=== PATIENT | female | born 1955 | race Caucasian/White ===

== ENCOUNTER → 2019-09-22 | Outpatient (REF) | payer OTHER | LOC: M SFHCADAM 14:14 | PROVIDERS: ATTEND Physician Assistant Medical | DX: Z12.4 Encounter for screening for malignant neoplasm of cervix (principal) ==

== ENCOUNTER → 2019-09-22 | Outpatient (CLI) | payer OTHER ==
--- NOTE | 2019-09-22 16:44 | REPMRS ---
Patient History The patient states she had a clinical breast exam in Patient is postmenopausal. No known family history of cancer. No Hormone Replacement Therapy Digital Woman Screen Mammo: September 22, 2019 - Exam #: [id number] Bilateral CC and MLO view(s) were taken. Technologist: Lenore Mckay, Technologist No prior studies available for comparison. FINDINGS: The breast tissue is heterogeneously dense. This may lower the sensitivity of mammography. There is a 12 mm nodule in the right breast central retroareolar region anterior third which merits further evaluation. This is well circumscribed and may be a cyst. There is also a 12 mm asymmetric density in the posterior third of the left breast laterally. This merits further evaluation as well. There is no other evidence of dominant mass, architectural distortion, or grouped microcalcification typical of malignancy. 3-D tomosynthesis shows no additional findings. Assessment: BI-RADS/ACR category 0 mammogram, Incomplete: Need additional imaging evaluation and/or prior mammograms for comparison. Recommendation Ultrasound and special view mammogram of both breasts. This patient's Lifetime Breast Cancer RIsk is estimated at 5.9 %. This mammogram was interpreted with the aid of an FDA-approved computer-aided dectection system. Electronically Signed By: Noel Finley MD 09/22/19 [id number]
== END ==
LOC: M WHC 11:40
PROVIDERS: ATTEND Physician Assistant Medical
DX: Z12.31 Encounter for screening mammogram for malignant neoplasm of breast (principal); N63.41 Unspecified lump in right breast, subareolar; N63.20 Unspecified lump in the left breast, unspecified quadrant

== ENCOUNTER → 2019-10-06 | Outpatient (CLI) | payer OTHER ==
--- NOTE | 2019-10-06 17:24 | REP ---
Digital diagnostic bilateral mammography with CAD, and bilateral focused breast sonography: History: Screening mammography 09/22/2019 was BIRADS category zero because of a subareolar nodule on the right and a upper outer quadrant nodule on the left. Diagnostic imaging was recommended. Mammographic findings: Magnified focal spot compression views were obtained bilaterally. These confirm the nodular opacities. A well circumscribed relatively low density in the subareolar nodule is seen on the right measuring 12 mm. On the left images confirm an asymmetric opacity somewhat posteriorly and laterally. This is less than optimally seen on the craniocaudal projection spot films but felt to be present. This measures 11 mm in diameter as well. Breast parenchyma is heterogeneously dense as before. Sonographic findings: Scanning in the retroareolar region of the right breast demonstrates an anechoic simple cyst at approximate 12 o'clock posterior the nipple measuring 9 x 9 x 8 mm. There is also a 5 mm cyst in the retroareolar region. No sonographically suspicious finding is seen on the right. On the left, scanning is performed throughout the left lateral breast. Heterogeneous fibroglandular echotexture is seen. No suspicious sonographic abnormality is observed. Impression: 1. BIRADS category II benign findings right breast, subareolar cyst. No suspicious right breast abnormality. 2. BIRADS category four suspicious findings left breast with an irregularly marginated upper outer quadrant asymmetric density present mammographically. No sonographic correlate. Recommend stereotactic needle biopsy procedure. BIRADS 2: BI-RADS/ACR category 2 mammogram. Benign Findings. This mammogram was interpreted with the aid of an FDA-approved computer-aided detection system. The patient letter being requested is m4 . Electronically Signed by Cuauhtemoc Finley MD 10/06/2019 06:40 P
== END ==
LOC: M RAD 12:35
PROVIDERS: ATTEND Physician Assistant Medical
DX: N63.0 Unspecified lump in unspecified breast (principal)

== ENCOUNTER → 2019-11-01 | Outpatient (CLI) | payer OTHER ==
[~2019-11-01] MED LIST: LIDOCAINE 1% MDV 20ML VIAL As Ordered ONE; SODIUM BICARBONATE 8.4% INJ 50MEQ 50 ML VIAL As Ordered ONE
[2019-11-01 10:05] VITALS: BP 132/89
--- NOTE | 2019-11-01 10:21 | REP ---
Digital diagnostic unilateral left breast mammography: Two views. With CAD. History: Marker clip placement views. The patient is status post sterotactic needle biopsy procedure for a nodular opacity in the left lateral breast. Comparison mammography September 22, 2019. Findings: The marker clip is seen in good position at the site of the target nodule in the inferolateral aspect of the left breast. There is no evidence of a hematoma. Impression: Marker clip in good position. This mammogram was interpreted with the aid of an FDA-approved computer-aided detection system. Electronically Signed by Cuauhtemoc Finley MD 11/01/2019 10:54 A
--- NOTE | 2019-11-01 11:03 | REP ---
Stereotactic breast biopsy. This procedure is performed by SHAHZAD Verde, under the personal supervision of Dr. Finley. The risks and benefits of the procedure were explained to the patient and informed consent was obtained both verbally and written. Directly prior to the start of the procedure, a formal timeout was done in the procedure room. The lateral medial approach was utilized. The left breast density was localized using stereotactic mammographic guidance. 5 ml of buffered lidocaine was used as a local anesthetic. And 10-gauge, suction assisted Mammotome needle was inserted and 6 core biopsy samples were obtained. A marker clip was placed at the biopsy site. The needle was removed and homeostasis was achieved. The patient tolerated the procedure well and there were no immediate complications. After the appropriate amount of monitored convalescence, the patient was discharged from the department. Impression: Technically successful left breast stereotactic biopsy Reviewed by SHAHZAD Dee 11/01/2019 10:17 A Electronically Signed by Cuauhtemoc Finley MD 11/01/2019 10:55 A
== END ==
LOC: M IRPRO 08:33
PROVIDERS: ATTEND Surgery
DX: N60.22 Fibroadenosis of left breast (principal); Z91.048 Other nonmedicinal substance allergy status

== ENCOUNTER → 2019-11-23 | Outpatient (REF) | payer MEDICAID, OTHER ==
[~2019-11-23] MED LIST changes: +ASPI-264 PO; +IBUP-1022 PO; -LIDOCAINE 1% MDV 20ML VIAL As Ordered ONE; +MIDOTAB PO; +NON-325T5 PO; +OXYC1TAB23 PO; +PEPT262C2 PO; +PRIL20TA2 PO; -SODIUM BICARBONATE 8.4% INJ 50MEQ 50 ML VIAL As Ordered ONE
== END ==
LOC: M SFHCWAGY 10:44
PROVIDERS: ATTEND Specialist
DX: R87.613 High grade squamous intraepithelial lesion on cytologic smear of cervix (HGSIL) (principal)

== ENCOUNTER → 2019-12-14 | Outpatient (REF) | payer MEDICAID, OTHER | LOC: M LAB REF 17:20 | PROVIDERS: ATTEND Specialist | DX: D06.0 Carcinoma in situ of endocervix (principal) ==

== ENCOUNTER 2020-01-01 07:38 | Day surgery (SDC) | payer OTHER ==
[~2020-01-01] VITALS: Ht 165.1 cm; Wt 79.8 kg
[~2020-01-01 07:38] MED LIST changes: -IBUP-1022 PO; +LIDOCAINE 1% MDV 20ML VIAL SQ PRN; +LIDOCAINE 2% 100MG/5ML SDV (FOR ANES.) As Ordered ONE; +LR 1,000 ML IV ONE; +MIDAZOLAM INJ 2MG/2ML VIAL (J2250 PER 1MG) As Ordered ONE; -MIDOTAB PO; +ONDANSETRON 4MG/2ML VIAL As Ordered ONE; -OXYC1TAB23 PO; +ROCURONIUM BROMIDE 50 MG/5 ML VIAL As Ordered ONE; +SUCCINYLCHOLINE 100 MG/5 ML SYRINGE (J0330) As Ordered ONE; +SUGAMMADEX SODIUM 500 MG/5 ML VIAL (BRIDION) As Ordered ONE; +ceFAZolin SOD 2 GM in IV 1 EA IV ONE; +dexameTHASONE 4 MG/ML 1ML VIAL (J1100 PER 1MG) As Ordered ONE; +fentaNYL 250 MCG/5 ML INJECTION (J3010) As Ordered ONE; +propofoL 200 MG/20 ML VIAL As Ordered ONE
[2020-01-01] MEDS ORDERED: ePHEDrine SULFATE 25 MG/5 ML(5MG/ML) SYRINGE As Ordered ONE (07:44)
[2020-01-01] MEDS ORDERED: PHENYLephrine HCL 500 MCG/5 ML (100MCG/ML) SYRINGE (J2370) As Ordered ONE (07:44)
[2020-01-01] MEDS ORDERED: MIDOTAB PO (08:02)
[2020-01-01 08:15] LABS: HEMATOCRIT 44.7 % (36.0-47.0); HEMOGLOBIN 14.2 g/dl (12.0-15.5); MEAN CORPUSCULAR HEMOGLOBIN 26.8 pg (27.0-33.0); MEAN CORPUSCULAR HGB CONC 31.8 g/dl (32.0-36.5); MEAN CORPUSCULAR VOLUME 84.5 fl (80.0-96.0); PLATELET COUNT, AUTOMATED 287 10^3/uL (150-450); RED BLOOD COUNT 5.29 10^6/uL (4.00-5.40); WHITE BLOOD COUNT 5.6 10^3/uL (4.0-10.0)
[2020-01-01] MEDS ORDERED: BUPIVACAINE HCL 0.25% 10ML VIAL As Ordered ONE (09:11)
[2020-01-01] MEDS ORDERED: SUCCINYLCHOLINE 100 MG/5 ML SYRINGE (J0330) As Ordered ONE (09:30)
[2020-01-01] MEDS ORDERED: ACETAMINOPHEN 1000MG 100ML IV BTL (OFIRMEV) (J0131 PER 10MG) As Ordered ONE (09:48)
[2020-01-01] MEDS ORDERED: LIDOCAINE 2% 100MG/5ML SDV (FOR ANES.) As Ordered ONE (10:55)
--- NOTE | 2020-01-01 11:19 | RO ---
DATE OF PROCEDURE: 01/01/2020 PREPROCEDURE DIAGNOSIS: Carcinoma in situ of the cervix. POSTPROCEDURE DIAGNOSIS: Carcinoma in situ of the cervix. PROCEDURE: Robotic assisted laparoscopic hysterectomy, bilateral salpingo-oophorectomy. SURGEON: Jose Low MD PREASSEMBLER PRINTED CIRCUIT BOARD: Lynda Iverson NP ANESTHESIA: General endotracheal. ESTIMATED BLOOD LOSS: 100 mL. URINE OUTPUT: 100 mL. FINDINGS: Cervix with evidence of prior conization. Irregular mildly enlarged uterus with multiple uterine fibroids. Normal fallopian tubes and ovaries. Normal upper abdomen. OPERATIVE SUMMARY: The patient taken to the operating room where general endotracheal anesthesia was induced. She was prepped and draped in sterile fashion in the dorsal lithotomy position. A Abxter catheter was placed. A [employer] uterine manipulator was placed. A periumbilical incision was made with a scalpel. Veress needle was placed through this incision. Intra-abdominal location of the Veress needle was assessed with the use of a saline filled syringe. A pneumoperitoneum was created. The Veress needle was removed. An 8 mm trocar using [employer] was inserted through this incision. Three 8 mm suprapubic ports were placed under direct visualization. The patient was placed in Trendelenburg position. The da Isaak surgical robot was docked to the ports. Using a vessel sealer and a fenestrated bipolar instrument, the IP ligaments, round ligaments and broad ligaments were coagulated and incised. The anterior and posterior leaves of the broad ligament were . The uterine vessels were coagulated and incised. Using the monopolar endoshears, the bladder flap was created. Curvilinear incision was made in the upper vagina at the level of the VCare cup and this was extended circumferentially around the upper vagina. The specimen including the uterus, cervix, both fallopian tubes and ovaries was removed through the vagina. The vaginal cuff was closed with #1 V-Loc suture in a running fashion. The pelvis was irrigated with good hemostasis noted. All instruments were removed. A cystoscopy was performed using a 70 degrees cystoscope. The Baxter catheter was removed. Bilateral ureteral jets were identified and there was no evidence of injury to the bladder. All instruments were removed. The skin was closed with #4-0 Monocryl subcuticular sutures. Sponge, instrument and needle counts were correct. The patient was extubated and went to recovery.
[2020-01-01] MEDS ORDERED: fentaNYL 100 MCG/2 ML INJECTION (J3010) IV PRN (11:30)
[2020-01-01] MEDS ORDERED: MORPHINE 4 MG/ML 1ML VIAL/SYRINGE (J2270) IV PRN (11:30)
[2020-01-01] MEDS ORDERED: PERCOCET 5MG/325MG TAB PO PRN ×2 (11:30)
[2020-01-01] MEDS ORDERED: oxyCODONE 5MG TAB PO PRN (11:30)
[2020-01-01] MEDS ORDERED: ONDANSETRON 4MG/2ML VIAL IV PRN ×2 (11:30)
[2020-01-01] MEDS ORDERED: LR 1,000 ML IV SCH ×2 (11:30)
[2020-01-01] MEDS ORDERED: METOCLOPRAMIDE INJ 10MG/2ML VIAL (J2765 PER 1) As Ordered ONE (11:43)
[2020-01-01] MEDS: KETOROLAC 30 MG/ML 1ML VIAL IV PRN (11:47)
[2020-01-01] MEDS: HYDROMORPHONE HCL 0.5 MG/ 0.5 ML SYRINGE (J1170 PER 1) IV PRN ×2 (11:54→12:10)
[2020-01-01] MEDS ORDERED: METOCLOPRAMIDE INJ 10MG/2ML VIAL (J2765 PER 1) IV PRN (12:00)
[2020-01-01] MEDS ORDERED: OXYC1TAB23 PO (12:04)
[2020-01-01] MEDS ORDERED: diphenhydrAMINE 50MG/ML VIAL (J1200) As Ordered ONE (12:32)
[2020-01-01] MEDS ORDERED: SCOPOLAMINE 1MG TRANSDERMAL PATCH As Ordered ONE (12:32)
[2020-01-01] MEDS ORDERED: diphenhydrAMINE 50MG/ML VIAL (J1200) IV PRN (12:45)
[2020-01-01] MEDS ORDERED: SCOPOLAMINE 1MG TRANSDERMAL PATCH TOP ONE (12:45)
[2020-01-01 12:51] VITALS: BP 114/74
[2020-01-01] MEDS: DOCUSATE SODIUM 100 MG CAP PO SCH ×2 (13:06→20:56)
[2020-01-01 13:21] VITALS: BP 116/74
[2020-01-01 13:51] VITALS: BP 113/75
[2020-01-01 14:51] VITALS: BP 112/75
[2020-01-01 15:51] VITALS: BP 116/70
[2020-01-01] MEDS: ACETAMINOPHEN 500 MG TAB PO PRN (19:27)
[2020-01-01 22:00] VITALS: BP 129/83
[2020-01-02 02:00] VITALS: BP 111/65
[2020-01-02] MEDS: KETOROLAC 30 MG/ML 1ML VIAL IV PRN (04:11)
[2020-01-02 06:00] VITALS: BP 111/66
[2020-01-02] MEDS: DOCUSATE SODIUM 100 MG CAP PO SCH (07:49)
[2020-01-02] MEDS ORDERED: IBUP-1022 PO (12:44)
[2020-01-02] MEDS: ACETAMINOPHEN 500 MG TAB PO PRN (13:38)
== END 2020-01-02 14:02 | disposition home or self-care (01) ==
LOC: M SDC 07:38 → M MSPAV 12:35 → M SDC 01-02 14:02
PROVIDERS: ATTEND Specialist
DX: N87.1 Moderate cervical dysplasia (principal); N84.0 Polyp of corpus uteri; D26.1 Other benign neoplasm of corpus uteri; N83.311 Acquired atrophy of right ovary; N83.312 Acquired atrophy of left ovary; K21.9 Gastro-esophageal reflux disease without esophagitis; K44.9 Diaphragmatic hernia without obstruction or gangrene; Z79.899 Other long term (current) drug therapy; Z79.82 Long term (current) use of aspirin; Z91.048 Other nonmedicinal substance allergy status

== ENCOUNTER → 2020-05-09 | Outpatient (CLI) | payer MEDICAID ==
[~2020-05-09] MED LIST changes: +IBUP-1022 PO; -LIDOCAINE 1% MDV 20ML VIAL SQ PRN; -LIDOCAINE 2% 100MG/5ML SDV (FOR ANES.) As Ordered ONE; -LR 1,000 ML IV ONE; -MIDAZOLAM INJ 2MG/2ML VIAL (J2250 PER 1MG) As Ordered ONE; +MIDOTAB PO; -ONDANSETRON 4MG/2ML VIAL As Ordered ONE; +OXYC1TAB23 PO; -ROCURONIUM BROMIDE 50 MG/5 ML VIAL As Ordered ONE; -SUCCINYLCHOLINE 100 MG/5 ML SYRINGE (J0330) As Ordered ONE; -SUGAMMADEX SODIUM 500 MG/5 ML VIAL (BRIDION) As Ordered ONE; -ceFAZolin SOD 2 GM in IV 1 EA IV ONE; -dexameTHASONE 4 MG/ML 1ML VIAL (J1100 PER 1MG) As Ordered ONE; -fentaNYL 250 MCG/5 ML INJECTION (J3010) As Ordered ONE; -propofoL 200 MG/20 ML VIAL As Ordered ONE
--- NOTE | 2020-05-09 15:04 | REPMRS ---
Patient History The patient states she had a clinical breast exam 6 months ago.No known family history of cancer. Benign stereotatic loc for ea lesion of the left breast, November 01, 2019. No Hormone Replacement Therapy Diagnostic Unilateral Mammo: Left Breast - May 09, 2020 - Exam #: [id number] CC and MLO view(s) were taken of the left breast. Technologist: Windy Leong, Technologist Prior study comparison: October 06, 2019, digital mammo diagnostic bilateral, performed at [facility]. September 22, 2019, bilateral digital woman screen mammo performed at [facility]. FINDINGS: There are scattered fibroglandular densities. There is a needle biopsy marker clip at the site of the biopsied nodule in the left breast. The nodule is smaller than on the pre-biopsy examination.There has been no other change in the appearance of the left breast parenchyma in the interval since the prior examination. No mass, architectural distortion, or microcalcific grouping has developed. No suspicious finding. 3-D tomosynthesis shows no additional findings. Assessment: BI-RADS/ACR category 2 mammogram. Benign Findings. Recommendation Routine screening mammogram of both breasts in 6 months. This patient's Lifetime Breast Cancer RIsk is estimated at 5.9 %. This mammogram was interpreted with the aid of an FDA-approved computer-aided dectection system. Electronically Signed By: Noel Finley MD 05/09/20 [id number]
== END ==
LOC: M WHC 14:24
PROVIDERS: ATTEND Surgery
DX: N63.20 Unspecified lump in the left breast, unspecified quadrant (principal)
CPT/HCPCS: 77065; G0279

== ENCOUNTER → 2020-05-21 | Outpatient (CLI) | payer MEDICAID ==
--- NOTE | 2020-06-11 13:43 | REP ---
LEFT BREAST ULTRASOUND HISTORY: Left nipple discharge for one week. Attention 2 o'clock and 4 o'clock regions. TECHNIQUE: Real-time sonographic evaluation of the left retroareolar region performed. FINDINGS: No discrete cystic or solid nodule is seen. There are two mildly dilated ducts identified with no abnormal internal echogenicity both measuring about 2 mm in diameter. IMPRESSION: ACR 2 benign ultrasound left breast. No cystic or solid nodule seen in the left retroareolar region with particular attention paid to 2 o'clock and 4 o'clock positions, in this patient with history of left nipple discharge for one week. Two normal appearing ducts are seen in the retroareolar region. Clinical correlation and follow-up recommended. YOHANNESD
== END ==
LOC: M WHC 06:44
PROVIDERS: ATTEND Surgery
DX: N64.52 Nipple discharge (principal)

== ENCOUNTER → 2020-08-20 | Outpatient (CLI) | payer MEDICARE, MEDICAID ==
[~2020-08-20] MED LIST changes: +ACET-838 PO; -NON-325T5 PO; +PROHANCE 279.3MG/ML 15ML VIAL As Ordered ONE
--- NOTE | 2020-08-20 17:05 | REP ---
INDICATION: DISCHARGE FROM LEFT NIPPLE. COMPARISON: Comparison left breast mammography May 09, 2020. Comparison left breast sonography May 21, 2020. Comparison is also made with mammography from 06 October 2019. TECHNIQUE: Three Denia MRI imaging was performed with a dedicated breast coil. Axial, coronal, and sagittal T1 and T2 weighted scans were obtained with and without fat saturation in the usual fashion. The study includes dynamically acquired post gadolinium-enhanced imaging with image subtraction. Maximum intensity projection and multi planar reformation imaging is included as well. This study is interpreted with the aid of MyCabbage, an FDA approved computer aided detection (CAD) software program, on a dedicated breast MRI workstation. The gadolinium enhancement dose is 15 mL of intravenous ProHance. FINDINGS: A previously placed HydroMARK needle biopsy clip devices noted inferiorly and laterally in left breast. There is a T1 hyperintense proteinaceous cyst in the retroareolar region of the right breast measuring 10 mm. This corresponds with sonographic findings from October 06, 2019. There is no evidence of axillary lymphadenopathy. There is an 8 mm T2 hyperintense area of nodular enhancement in the right breast at approximately 11-12 o'clock middle 3rd consistent with fibroadenoma. There is a slightly dilated retroareolar duct in each breast on T2 weighted scans. There is a small 5 mm cyst in the right breast medially. There is a 5 mm area of enhancement and washout in the subareolar region of the left breast inferior and lateral quadrant at approximately 4 o'clock position anterior 3rd. This is adjacent to the dilated retroareolar duct. This is not apparent on T2 weighted scans. IMPRESSION: Mildly dilated retroareolar breast ducts, 1 on each side. Benign-appearing fibroadenoma in the right breast 8 mm. 4 mm focus of enhancement and washout in the retroareolar region of the left breast inferiorly and laterally associated with the dilated duct. Lesion such is intraductal papilloma could have this appearance. Recent subareolar left breast sonography did not show an abnormal soft tissue structure. BI-RADS category is felt to be best assigned as category 4 suspicious abnormality. Second-look targeted retroareolar ultrasound could be considered. Alternatively, MRI guided needle biopsy could be considered, although the target is quite small.. <Electronically signed by Noel Finley > 08/20/20 [id number]
== END ==
LOC: M RAD 15:00
PROVIDERS: ATTEND Surgery
DX: N64.52 Nipple discharge (principal); Z97.8 Presence of other specified devices; N60.01 Solitary cyst of right breast; N60.41 Mammary duct ectasia of right breast; N60.42 Mammary duct ectasia of left breast
CPT/HCPCS: A9576; C8908

== ENCOUNTER → 2020-08-30 | Outpatient (CLI) | payer MEDICARE, MEDICAID ==
[~2020-08-30] MED LIST changes: -PROHANCE 279.3MG/ML 15ML VIAL As Ordered ONE
--- NOTE | 2020-08-30 11:48 | REP ---
INDICATION: 2ND LOOK LT BREAST - ABNORMAL MRI. Targeted sonography. Recent MRI study demonstrated dilated ducts and a 4 mm enhancing nodule in the subareolar region of the left breast inferiorly and laterally. COMPARISON: Comparison MRI study August 20, 2020. Comparison mammography May 09, 2020.. TECHNIQUE: Targeted left breast sonography. FINDINGS: Left breast is scanned inferiorly and laterally, 3 o'clock 6 o'clock. There are 2 dilated ducts in the subareolar region just behind the nipple. At 6 o'clock a dilated duct is seen with hypoechoic content. In the 3 to 4 o'clock position in the left breast there is a echogenic nodule which appears to be within a breast duct, 7 x 7 x 3 mm in diameter. This is 3.3 cm from the nipple and is felt to correspond with the focus on breast MRI study. No other significant sonographic finding. The previously placed HydroMARK clip is again noted at the 4 o'clock position. This is not related to the MR findings. IMPRESSION: Second-look sonography demonstrates a 7 mm oval-shaped echogenic nodule which appears to be within a duct at approximately the 3 to 4 o'clock position in the left breast. This is felt to correspond to the MRI findings. Ultrasound-guided needle biopsy suggested. BI-RADS category 4 suspicious finding. Marker clip placement and post clip placement mammography suggested. Please note that the ultrasound finding is fairly subtle and it may be prudent to schedule the ultrasound-guided needle biopsy here in the Main [place] department, hopefully with the same timber robber. <Electronically signed by Noel Finley > 08/30/20 [id number]
== END ==
LOC: M RAD 10:25
PROVIDERS: ATTEND Surgery
DX: R92.2 Inconclusive mammogram (principal)

== ENCOUNTER → 2020-09-18 | Outpatient (CLI) | payer MEDICAID, MEDICARE | LOC: M WHCPRO 10:46 | PROVIDERS: ATTEND Surgery | DX: R92.8 Other abnormal and inconclusive findings on diagnostic imaging of breast (principal); Z53.8 Procedure and treatment not carried out for other reasons ==

== ENCOUNTER → 2020-09-23 | Outpatient (CLI) | payer MEDICARE ==
[~2020-09-23] MED LIST changes: +ACET1TAB55 PO; +PROT1TAB2 PO
--- NOTE | 2020-09-23 13:22 | REP ---
INDICATION: LEFT BREAST MASS/LEFT BREAST BX/CK CLIP PLACEMENT. COMPARISON: Mammogram 05/09/2020. ultrasound 08/30/2020. TECHNIQUE: MLO and CC views left breast performed following ultrasound-guided biopsy of a nodule at 3-4 o'clock left breast. FINDINGS: A biopsy clip is seen at the site of the biopsy at 3 o'clock left breast. Remainder of the mammogram is unchanged. IMPRESSION: Biopsy clip placed at 3 o'clock left breast, at the site of today's ultrasound-guided biopsy. RECOMMENDATION: Clinical follow-up. <Electronically signed by Khoa Feliciano > 09/23/20 [id number]
== END ==
LOC: M WHC 11:05
PROVIDERS: ATTEND Surgery
DX: R92.8 Other abnormal and inconclusive findings on diagnostic imaging of breast (principal)

== ENCOUNTER → 2020-09-23 | Outpatient (CLI) | payer MEDICAID, MEDICARE ==
[~2020-09-23] MED LIST changes: +LIDOCAINE 1% MDV 20ML VIAL As Ordered ONE; +SODIUM BICARBONATE 8.4% INJ 50MEQ 50 ML VIAL As Ordered ONE
[2020-09-23 10:40] VITALS: BP 130/80
--- NOTE | 2020-09-24 18:40 | REP ---
INDICATION: LT BREAST MASS. COMPARISON: None. TECHNIQUE: The procedure was performed under the direct supervision of Dr. Feliciano. The risks and benefits of the procedure were explained to the patient and informed consent was obtained. The patient has a history of a 7 mm oval-shaped echogenic nodule which appears to be within a duct at approximately the 3 to 4 o'clock position of the left breast seen on a previous ultrasound dated 08/30/2020. The left breast nodule was localized using ultrasound guidance. The skin was prepped and draped in a sterile fashion. 1% Xylocaine was used as a local anesthetic. Using ultrasound guidance a 14 gauge coaxial needle biopsy system was inserted and6 core biopsy samples were obtained. A marker clip was placed at the biopsy site The patient tolerated the procedure well and there were no immediate complications. After the appropriate amount of monitored convalescence, the patient was discharged from the department. FINDINGS: None IMPRESSION: Ultrasound-guided left breast biopsy with marker clip placement. <Electronically signed by Marcos Hunt > 09/24/20 1540 <Electronically signed by Khoa Feliciano > 09/24/20 [id number]
== END ==
LOC: M IRPRO 09:32
PROVIDERS: ATTEND Surgery
DX: N60.12 Diffuse cystic mastopathy of left breast (principal)

== ENCOUNTER → 2020-10-30 | Outpatient (CLI) | payer MEDICARE, MEDICAID ==
[~2020-10-30] MED LIST changes: -LIDOCAINE 1% MDV 20ML VIAL As Ordered ONE; -SODIUM BICARBONATE 8.4% INJ 50MEQ 50 ML VIAL As Ordered ONE
--- NOTE | 2020-10-30 14:22 | REP ---
INDICATION: PREOP EXAM. COMPARISON: No comparison study. TECHNIQUE: Two views.. FINDINGS: The lungs are well inflated and free of infiltrate. The pleural angles are sharp. The heart size is normal. Pulmonary vasculature is not increased. No significant bony abnormality is seen. There is minimal linear fibrosis in the left base laterally. IMPRESSION: No active disease.. <Electronically signed by Noel Finley > 10/30/20 [id number]
== END ==
LOC: M ADAMS 13:49
PROVIDERS: ATTEND Family Medicine
DX: Z01.818 Encounter for other preprocedural examination (principal); N64.52 Nipple discharge

== ENCOUNTER → 2020-10-30 | Outpatient (REF) | payer MEDICARE, MEDICAID ==
[2020-10-30 16:20] LABS: BASO % 0.5 % (0.0-1.0); EOS # 0.2 10^3/uL (0.0-0.5); HEMATOCRIT 42.7 % (36.0-47.0); HEMOGLOBIN 13.3 g/dl (12.0-15.5); LYMPH # 1.4 10^3/uL (1.5-5.0); LYMPH % 23.8 % (24.0-44.0); MEAN CORPUSCULAR HEMOGLOBIN 25.9 pg (27.0-33.0); MEAN CORPUSCULAR HGB CONC 31.1 g/dl (32.0-36.5); MEAN CORPUSCULAR VOLUME 83.1 fl (80.0-96.0); MONO # 0.5 10^3/uL (0.0-0.8); MONO % 7.6 % (2.0-8.0); NEUTROPHILS # 3.8 10^3/uL (1.5-8.5); NEUTROPHILS % 63.6 % (36.0-66.0); PLATELET COUNT, AUTOMATED 305 10^3/uL (150-450); RED BLOOD COUNT 5.14 10^6/uL (4.00-5.40)
[2020-10-30 16:55] LABS: ALBUMIN 3.7 GM/DL (3.2-5.2); ALT/SGPT 29 U/L (12-78); BILIRUBIN,TOTAL 0.3 MG/DL (0.2-1.0); BLOOD UREA NITROGEN 19 MG/DL (7-18); CALCIUM LEVEL 9.2 MG/DL (8.8-10.2); CARBON DIOXIDE LEVEL 29 MEQ/L (21-32); CHLORIDE LEVEL 107 MEQ/L (98-107); CREATININE FOR GFR 0.56 MG/DL (0.55-1.30); GLOMERULAR FILTRATION RATE > 60.0 (>45); GLUCOSE, FASTING 76 MG/DL (70-100); POTASSIUM SERUM 4.8 MEQ/L (3.5-5.1); SODIUM LEVEL 141 MEQ/L (136-145); TOTAL PROTEIN 7.1 GM/DL (6.4-8.2)
== END ==
LOC: M SFHCADAM 13:48
PROVIDERS: ATTEND Family Medicine
DX: Z01.818 Encounter for other preprocedural examination (principal); N64.52 Nipple discharge

== ENCOUNTER → 2020-11-07 | Outpatient (CLI) | payer MEDICARE | LOC: M LABSMTC 10:20 | PROVIDERS: ATTEND Anesthesiology | DX: Z01.812 Encounter for preprocedural laboratory examination (principal); Z20.822 Contact with and (suspected) exposure to COVID-19 ==

== ENCOUNTER 2020-11-12 06:22 | Day surgery (SDC) | payer MEDICARE ==
[~2020-11-12] VITALS: Ht 167.6 cm; Wt 81.2 kg
[2020-11-12] MEDS ORDERED: ceFAZolin SOD 2 GM in IV 1 EA IV ONE (07:00)
[2020-11-12] MEDS ORDERED: NS 1,000 ML IV ONE (07:00)
[2020-11-12] MEDS ORDERED: HEPARIN SOD (PORCINE) 5000UNITS/ML 1ML VIAL/SYRINGE SQ ONE (07:00)
[2020-11-12] MEDS ORDERED: LR 1,000 ML IV ONE (07:00)
[2020-11-12] MEDS ORDERED: LIDOCAINE 1% MDV 20ML VIAL As Ordered ONE (07:14)
[2020-11-12] MEDS ORDERED: SCOPOLAMINE 1MG TRANSDERMAL PATCH As Ordered ONE (07:14)
[2020-11-12] MEDS ORDERED: BUPIVACAINE HCL 0.25% 10ML VIAL As Ordered ONE (07:14)
[2020-11-12] MEDS ORDERED: LIDOCAINE 2% 100MG/5ML SDV (FOR ANES.) As Ordered ONE (07:20)
[2020-11-12] MEDS ORDERED: propofoL 200 MG/20 ML VIAL As Ordered ONE (07:20)
[2020-11-12] MEDS ORDERED: fentaNYL 250 MCG/5 ML INJECTION (J3010) As Ordered ONE (07:20)
[2020-11-12] MEDS ORDERED: MIDAZOLAM INJ 2MG/2ML VIAL (J2250 PER 1MG) As Ordered ONE (07:20)
[2020-11-12] MEDS ORDERED: ROCURONIUM BROMIDE 50 MG/5 ML VIAL As Ordered ONE (07:20)
[2020-11-12] MEDS ORDERED: SCOPOLAMINE 1MG TRANSDERMAL PATCH TOP ONE (08:00)
[2020-11-12] MEDS ORDERED: METOCLOPRAMIDE INJ 10MG/2ML VIAL (J2765 PER 1) As Ordered ONE (08:07)
[2020-11-12] MEDS ORDERED: KETOROLAC 60MG 2ML VIAL As Ordered ONE (08:07)
[2020-11-12] MEDS ORDERED: ONDANSETRON 4MG/2ML VIAL As Ordered ONE ×2 (08:07→09:55)
[2020-11-12] MEDS ORDERED: dexameTHASONE 4 MG/ML 1ML VIAL (J1100 PER 1MG) As Ordered ONE (08:07)
[2020-11-12] MEDS ORDERED: SUGAMMADEX SODIUM 500 MG/5 ML VIAL (BRIDION) As Ordered ONE (08:10)
[2020-11-12] MEDS ORDERED: PHENYLephrine 500MCG 5ML (100MCG/ML) SYRINGE As Ordered ONE (08:16)
[2020-11-12] MEDS ORDERED: ULTR50TA8 PO (09:24)
[2020-11-12] MEDS ORDERED: oxyCODONE 5MG TAB As Ordered ONE (09:56)
[2020-11-12] MEDS ORDERED: HYDROMORPHONE HCL 0.5 MG/ 0.5 ML SYRINGE (J1170 PER 1) IV PRN (10:00)
[2020-11-12] MEDS ORDERED: ONDANSETRON 4MG/2ML VIAL IV PRN (10:00)
[2020-11-12] MEDS ORDERED: PERCOCET 5MG/325MG TAB PO PRN (10:00)
[2020-11-12] MEDS ORDERED: METOCLOPRAMIDE INJ 10MG/2ML VIAL (J2765 PER 1) IV PRN (10:00)
[2020-11-12] MEDS ORDERED: fentaNYL 100 MCG/2 ML INJECTION (J3010) IV PRN (10:00)
[2020-11-12] MEDS ORDERED: LR 1,000 ML IV SCH (10:00)
[2020-11-12 11:30] VITALS: BP 121/70
--- NOTE | 2020-11-13 10:05 | ROOPDOC ---
[facility] Report Of Operation Report of Operation DATE OF PROCEDURE: 11/12/20 PREPROCEDURE DIAGNOSES: Left persistent spontaneous left nipple discharge POSTPROCEDURE DIAGNOSES: same PROCEDURE: Left focused draining duct excision SURGEON: Dr. Yari Alvarez ANESTHESIA: general ESTIMATED BLOOD LOSS: Approximately 5 mL. COMPLICATIONS: none REMARKS: left draining duct identified DESCRIPTION OF PROCEDURE: INDICATIONS: Ms. Hillary Jacobs is a 65-year-old woman who was found to have a unilateral spontaneous clear nipple discharge from the left breast. She underwent diagnostic images with mammogram, ultrasound and MRI. MRI showed 4 mm focus of enhancement and washout in the retroareolar region of the left breast inferiorly and laterally associated with the dilated duct. Second look US was done and sono correlate was identified. US guided bx of the left lateral lesion was done by the radiology team and no malignancy was identified on pathology. The left nipple discharge was persistent. I have discussed with the patient that due to the lack of specific targetable lesion, I recommended focused left breast draining duct excision, possible central duct excision if draining duct cannot be identified on the day of surgery. She was medically cleared for surgery by her primary care doctor. Risks and possible complications of surgical procedure including bleeding, infection and injury to surrounding structures were explained to the patient and she wished to proceed. Consent was signed. My initials were placed on the operative site. DETAILS: Patient was taken to the operating room and placed on the operating room table. A sign in was called stating patients name, date of and the procedure to be done. Preoperative antibiotics were infused. Smooth induction of general anesthesia was done. Patients hands were extended on arm rests. Care was taken not to over extend the arms. Ultrasound was used to see if any dilated duct can be identified, however, no targetable duct was seen. Next, patients left breast and axilla were prepped and draped in the usual fashion. Appropriate time out was done stating patients name, date of and the procedure to be done. Next, the left nipple was assessed for the drainage. Drainage was noted in the central part of the nipple from one area. Smallest lacrimal probe was used to interrogate the duct producing the drainage. The lacrimal probe went smoothly into the draining duct and was advanced into the distal part of the duct. Additional drainage was noted around the lacrimal probe. Local anesthetic using 1% lidocaine and 0.25 % Marcaine 50/50 mix was injected at the site of planned periareolar incision. The incision was made with the scalpel. Subcutaneous skin flaps were raised. The lacrimal probe was kept in place in the affected duct throughout dissection. The duct with the lacrimal prove and immediate tissues surrounding the affected duct were excised. Extent of dissection was carried along the lacrimal probe earlier placed into the affected duct. After the dissected tissue was from the remaining breast tissue the lacrimal probe was then removed from the duct and the duct was disconnected from the nipple site. The specimen was carefully removed from the breast keeping its proper orientation and moved to the back table where margins were marked with the surgical inking kit following the standard colors recommendations. The specimen was labeled with patients name and left focused draining duct excision and sent to pathology. Next, the wound was irrigated thoroughly and adequate hemostasis was assured. Additional local anesthetic was injected into surrounding tissues. space was approximated with 2-0 Vicryl. The dermis was closed with 3-0 Vicryl and skin was closed with 4-0 Monocryl. Surgical glue was placed over the incision. Patient emerged from the anesthesia without any problems. Fluffs were placed over the operative site and patients chest was wrapped snuggly in the МАРИЯ wrap. Sponge and instrument counts were done and were correct. Patient tolerated procedure well and was taken to recovery unit in stable condition. YARI ALVAREZ DO Nov 13, 2020 10:05
== END 2020-11-12 12:23 | disposition home or self-care (01) ==
LOC: M SDC 06:22
PROVIDERS: ATTEND Surgery
DX: N64.52 Nipple discharge (principal); D24.2 Benign neoplasm of left breast; N63.20 Unspecified lump in the left breast, unspecified quadrant; M10.9 Gout, unspecified; K21.9 Gastro-esophageal reflux disease without esophagitis; Z79.899 Other long term (current) drug therapy
CPT/HCPCS: 19120; 36415; 86850; 86900; 86901; 88305; J0690; J1100; J1644; J1885; J2250; J2370; J2405; J2765; J3010

== ENCOUNTER → 2021-03-14 | Outpatient (CLI) | payer MEDICARE ==
[~2021-03-14] MED LIST changes: -ACET-838 PO; +ACET32TAB PO; +ULTR50TA8 PO
--- NOTE | 2021-03-14 15:59 | REPMRS ---
Patient History The patient states she had a clinical breast exam in February 2021. Patient is postmenopausal, has history of hyperplasia w/o atypia in the left breast at age 65, and has history of other cancer at age 64. Family history of breast cancer in maternal grandmother. Benign US guided breast biopsy of the left breast, September 23, 2020. Benign stereotatic loc for ea lesion of the left breast, November 01, 2019. Left breast ductectomy, 10/2020. No Hormone Replacement Therapy Patient states no breast complaints today. Patient has signed MRS History Sheet. Digital Woman Screen Mammo: March 14, 2021 - Exam #: [id number] Bilateral CC and MLO view(s) were taken. Technologist: RT Shamar Prior study comparison: October 06, 2019, digital mammo diagnostic bilateral, performed at [facility]. October 06, 2019, bilateral breast ultrasound unilateral limited, performed at [facility]. September 22, 2019, bilateral digital woman screen mammo performed at [facility] and Breast [facility]. FINDINGS: There are scattered fibroglandular densities. There has been no change in the appearance of the right breast parenchyma in the interval since the prior examination. No mass, architectural distortion, or microcalcific grouping has developed. 12 mm nodular opacity again seen in the right retroareolar region unchanged from the September 22, 2019 prior study. This was previously identified as a cyst. No suspicious finding. 3-D tomosynthesis shows no additional findings. Assessment: BI-RADS/ACR category 2 mammogram. Benign Findings. Recommendation Routine screening mammogram of both breasts in 1 year. This patient's [facility] Lifetime Breast Cancer RIsk is estimated at 15.6 %. This mammogram was interpreted with the aid of an FDA-approved computer-aided dectection system. Electronically Signed By: Noel Finley MD 03/14/21 0887
== END ==
LOC: M WHC 14:33
PROVIDERS: ATTEND Surgery
DX: Z12.31 Encounter for screening mammogram for malignant neoplasm of breast (principal); N64.89 Other specified disorders of breast; Z80.3 Family history of malignant neoplasm of breast

== ENCOUNTER → 2021-12-12 | Outpatient (CLI) | payer MEDICARE ==
[2021-12-12 13:03] LABS: BASO % 0.4 % (0.0-1.0); EOS # 0.2 10^3/uL (0.0-0.5); EOS % 4.1 % (0.0-3.0); HEMATOCRIT 41.2 % (36.0-47.0); HEMOGLOBIN 13.4 g/dl (12.0-15.5); LYMPH # 1.3 10^3/uL (1.5-5.0); LYMPH % 23.6 % (24.0-44.0); MEAN CORPUSCULAR HEMOGLOBIN 26.2 pg (27.0-33.0); MEAN CORPUSCULAR HGB CONC 32.5 g/dl (32.0-36.5); MEAN CORPUSCULAR VOLUME 80.5 fl (80.0-96.0); MONO # 0.6 10^3/uL (0.0-0.8); MONO % 10.7 % (2.0-8.0); NEUTROPHILS # 3.3 10^3/uL (1.5-8.5); NEUTROPHILS % 60.5 % (36.0-66.0); PLATELET COUNT, AUTOMATED 295 10^3/uL (150-450); RED BLOOD COUNT 5.12 10^6/uL (4.00-5.40); WHITE BLOOD COUNT 5.4 10^3/uL (4.0-10.0)
[2021-12-12 13:39] LABS: ALBUMIN 3.4 GM/DL (3.2-5.2); ALT/SGPT 29 U/L (12-78); BILIRUBIN,TOTAL 0.4 MG/DL (0.2-1.0); BLOOD UREA NITROGEN 18 MG/DL (7-18); CALCIUM LEVEL 9.4 MG/DL (8.8-10.2); CARBON DIOXIDE LEVEL 33 MEQ/L (21-32); CHLORIDE LEVEL 111 MEQ/L (98-107); CHOLESTEROL LEVEL 190 MG/DL (<200); CHOLESTEROL RISK RATIO 2.235 (<5); CREATININE FOR GFR 0.61 MG/DL (0.55-1.30); GLOMERULAR FILTRATION RATE > 60.0 (>45); GLUCOSE, FASTING 78 MG/DL (70-100); HDL CHOLESTEROL 85 MG/DL (>40); LDL CHOLESTEROL 93 MG/DL (<100); NON-HDL-C 105 MG/DL; POTASSIUM SERUM 4.8 MEQ/L (3.5-5.1); SODIUM LEVEL 144 MEQ/L (136-145); THYROID STIMULATING HORMONE 0.939 uIU/ML (0.358-3.740); TOTAL PROTEIN 6.8 GM/DL (6.4-8.2); TRIGLYCERIDES LEVEL 59 MG/DL (<150)
== END ==
LOC: M LAB 12:38
PROVIDERS: ATTEND Physician Assistant Medical
DX: K21.9 Gastro-esophageal reflux disease without esophagitis (principal); Z13.220 Encounter for screening for lipoid disorders; Z13.0 Encounter for screening for diseases of the blood and blood-forming organs and certain disorders involving the immune mechanism

== ENCOUNTER → 2022-01-26 | Outpatient (CLI) | payer MEDICARE ==
[~2022-01-26] MED LIST changes: +NEXI40CA PO; +SUCR1TAB56 PO
== END ==
LOC: M LABSMTC 10:39
PROVIDERS: ATTEND Anesthesiology
DX: Z01.818 Encounter for other preprocedural examination (principal); Z11.52 Encounter for screening for COVID-19

== ENCOUNTER 2022-01-30 11:08 | Day surgery (SDC) | payer MEDICARE ==
[~2022-01-30] VITALS: Ht 167.6 cm; Wt 79.8 kg
[~2022-01-30 11:08] MED LIST changes: +NS 1,000 ML IV ONE
[2022-01-30] MEDS ORDERED: LIDOCAINE 2% 100MG/5ML SDV (FOR ANES.) As Ordered ONE (11:17)
[2022-01-30] MEDS ORDERED: fentaNYL 100 MCG/2 ML INJECTION As Ordered ONE (11:17)
[2022-01-30] MEDS ORDERED: propofoL 200 MG/20 ML VIAL As Ordered ONE (11:17)
[2022-01-30 12:50] VITALS: BP 145/70
== END 2022-01-30 13:04 | disposition home or self-care (01) ==
LOC: M OPP 11:08
PROVIDERS: ATTEND Internal Medicine Gastroenterology
DX: K21.00 Gastro-esophageal reflux disease with esophagitis, without bleeding (principal); K22.89 Other specified disease of esophagus; K44.9 Diaphragmatic hernia without obstruction or gangrene; K29.70 Gastritis, unspecified, without bleeding; R10.13 Epigastric pain; R13.10 Dysphagia, unspecified; Z85.41 Personal history of malignant neoplasm of cervix uteri; Z79.899 Other long term (current) drug therapy; Z91.048 Other nonmedicinal substance allergy status
CPT/HCPCS: 43239; 88305; 88312; J3010

== ENCOUNTER → 2022-06-02 | Outpatient (REF) | payer MEDICARE ==
[~2022-06-02] MED LIST changes: -NS 1,000 ML IV ONE
[2022-06-02 16:54] LABS: BASO % 0.5 % (0.0-1.0); EOS # 0.3 10^3/uL (0.0-0.5); EOS % 4.7 % (0.0-3.0); HEMATOCRIT 41.4 % (36.0-47.0); HEMOGLOBIN 12.9 g/dl (12.0-15.5); LYMPH # 1.4 10^3/uL (1.5-5.0); LYMPH % 25.3 % (24.0-44.0); MEAN CORPUSCULAR HEMOGLOBIN 25.2 pg (27.0-33.0); MEAN CORPUSCULAR HGB CONC 31.2 g/dl (32.0-36.5); MEAN CORPUSCULAR VOLUME 80.9 fl (80.0-96.0); MONO # 0.4 10^3/uL (0.0-0.8); MONO % 7.5 % (2.0-8.0); NEUTROPHILS # 3.4 10^3/uL (1.5-8.5); NEUTROPHILS % 61.6 % (36.0-66.0); PLATELET COUNT, AUTOMATED 285 10^3/uL (150-450); RED BLOOD COUNT 5.12 10^6/uL (4.00-5.40); WHITE BLOOD COUNT 5.6 10^3/uL (4.0-10.0)
== END ==
LOC: M SFHCADAM 14:44
PROVIDERS: ATTEND Physician Assistant Medical
DX: Z01.812 Encounter for preprocedural laboratory examination (principal); K44.9 Diaphragmatic hernia without obstruction or gangrene; K21.9 Gastro-esophageal reflux disease without esophagitis

== ENCOUNTER → 2022-06-05 | Outpatient (CLI) | payer MEDICARE ==
[~2022-06-05] MED LIST changes: +E-Z-GAS II EFFERVESCENT PACKET (SODIUM BICARB./CITRIC ACID/SIMETHICONE) As Ordered ONE; +E-Z-HD 98% w/w 340GM SUSP BTL As Ordered ONE; +E-Z-PAQUE 96% w/w SUSP 176GM BTL As Ordered ONE
== END ==
LOC: M RAD 09:41
PROVIDERS: ATTEND Specialist
DX: K21.00 Gastro-esophageal reflux disease with esophagitis, without bleeding (principal); K44.9 Diaphragmatic hernia without obstruction or gangrene; K22.2 Esophageal obstruction

== ENCOUNTER → 2022-06-25 | Outpatient (CLI) | payer MEDICARE ==
[~2022-06-25] MED LIST changes: -E-Z-GAS II EFFERVESCENT PACKET (SODIUM BICARB./CITRIC ACID/SIMETHICONE) As Ordered ONE; -E-Z-HD 98% w/w 340GM SUSP BTL As Ordered ONE; -E-Z-PAQUE 96% w/w SUSP 176GM BTL As Ordered ONE
== END ==
LOC: M LABSMTC 11:33
PROVIDERS: ATTEND Specialist
DX: Z01.812 Encounter for preprocedural laboratory examination (principal); Z20.822 Contact with and (suspected) exposure to COVID-19

== ENCOUNTER → 2023-01-18 | Outpatient (REF) | payer MEDICARE ==
[2023-01-18 17:14] LABS: BASO % 0.6 % (0.0-1.0); EOS # 0.3 10^3/uL (0.0-0.5); EOS % 6.1 % (0.0-3.0); HEMATOCRIT 35.2 % (36.0-47.0); HEMOGLOBIN 10.1 g/dl (12.0-15.5); LYMPH # 1.3 10^3/uL (1.5-5.0); LYMPH % 24.3 % (24.0-44.0); MEAN CORPUSCULAR HEMOGLOBIN 20.7 pg (27.0-33.0); MEAN CORPUSCULAR HGB CONC 28.7 g/dl (32.0-36.5); MONO # 0.5 10^3/uL (0.0-0.8); MONO % 9.2 % (2.0-8.0); NEUTROPHILS # 3.1 10^3/uL (1.5-8.5); NEUTROPHILS % 59.6 % (36.0-66.0); PLATELET COUNT, AUTOMATED 422 10^3/uL (150-450); RED BLOOD COUNT 4.89 10^6/uL (4.00-5.40); WHITE BLOOD COUNT 5.2 10^3/uL (4.0-10.0)
[2023-01-18 17:21] LABS: ALBUMIN 3.5 G/DL (3.2-5.2); ALKALINE PHOSPHATASE 128 U/L (46-116); ALT/SGPT 19 U/L (7.0-40); AST/SGOT 19 U/L (<34); BILIRUBIN,TOTAL 0.3 MG/DL (0.3-1.2); BLOOD UREA NITROGEN 15 MG/DL (9-23); CALCIUM LEVEL 8.9 MG/DL (8.3-10.6); CARBON DIOXIDE LEVEL 30 MMOL/L (20-31); CHLORIDE LEVEL 105 MMOL/L (98-107); CHOLESTEROL LEVEL 167 MG/DL (<200); CHOLESTEROL RISK RATIO 2.02 (<5); CREATININE FOR GFR 0.57 MG/DL (0.55-1.30); GLOMERULAR FILTRATION RATE > 60.0 (>45); GLUCOSE, FASTING 96 MG/DL (74-106); HDL CHOLESTEROL 82.5 MG/DL (>40); LDL CHOLESTEROL 64.7 MG/DL (<100); NON-HDL-C 84.5 MG/DL; POTASSIUM SERUM 4.5 MMOL/L (3.5-5.1); SODIUM LEVEL 142 MMOL/L (136-145); THYROID STIMULATING HORMONE 1.437 uIU/ML (0.55-4.78); TOTAL PROTEIN 6.8 G/DL (5.7-8.2); TRIGLYCERIDES LEVEL 99 MG/DL (<150)
== END ==
LOC: M SFHCADAM 13:50
PROVIDERS: ATTEND Physician Assistant Medical
DX: K21.9 Gastro-esophageal reflux disease without esophagitis (principal); Z13.220 Encounter for screening for lipoid disorders; Z13.0 Encounter for screening for diseases of the blood and blood-forming organs and certain disorders involving the immune mechanism

== ENCOUNTER 2023-11-16 09:09 | Day surgery (SDC) | payer MEDICARE ==
[~2023-11-16] VITALS: Ht 167.6 cm; Wt 80.7 kg
[~2023-11-16 09:09] MED LIST changes: +BSS IRR 500ML/OMIDRIA 4ML IRR BAG (OR ONLY) As Ordered ONE; +IRON65TA2 PO; +MIDAZOLAM INJ 2MG/2ML VIAL As Ordered ONE; +fentaNYL 100 MCG/2 ML INJECTION As Ordered ONE
[2023-11-16] MEDS ORDERED: ACET325C5 PO (09:42)
[2023-11-16] MEDS: PROPARACAINE 0.5% OPHTH SOL 15ML OD ONE (09:49)
[2023-11-16] MEDS: PHENYLEPHRINE 2.5% OPHTH SOL 2ML OD SCH (10:01)
[2023-11-16] MEDS: ATROPINE SULFATE 1% OPHTH SOLN 2ML BTL OD SCH (10:01)
[2023-11-16] MEDS: TROPICAMIDE 1% OPHTH SOLN 15ML OD SCH (10:01)
[2023-11-16] MEDS: OFLOXACIN 0.3 % (OCUFLOX) OPTH SOL 5ML OD SCH (10:01)
[2023-11-16] MEDS: SCOPOLAMINE 1MG TRANSDERMAL PATCH TOP ONE (10:03)
[2023-11-16] MEDS: LIDOCAINE 1% SDV 5ML VIAL As Ordered ONE (10:26)
[2023-11-16] MEDS: CEFUROXIME 1MG/0.1ML INTRACAMERAL INJ As Ordered ONE (10:27)
[2023-11-16] MEDS: TOBRADEX OPHTH SUSP 2.5 ML As Ordered ONE (10:28)
[2023-11-16 10:34] VITALS: BP 148/89; TEMP 97.5; O2SAT 99
== END 2023-11-16 10:53 | disposition home or self-care (01) ==
LOC: M SDC 09:09
PROVIDERS: ATTEND Ophthalmology
DX: H25.11 Age-related nuclear cataract, right eye (principal); Z85.41 Personal history of malignant neoplasm of cervix uteri; Z90.710 Acquired absence of both cervix and uterus
CPT/HCPCS: 66984; J0697; J1097; J2250; J3010; V2632

== ENCOUNTER → 2023-11-25 | Outpatient (CLI) | payer MEDICARE ==
[~2023-11-25] MED LIST changes: +ACET325C5 PO; -BSS IRR 500ML/OMIDRIA 4ML IRR BAG (OR ONLY) As Ordered ONE; -MIDAZOLAM INJ 2MG/2ML VIAL As Ordered ONE; -fentaNYL 100 MCG/2 ML INJECTION As Ordered ONE
== END ==
LOC: M ADAMS 09:41
PROVIDERS: ATTEND Physician Assistant Medical
DX: R05.1 Acute cough (principal)

== ENCOUNTER → 2023-11-25 | Outpatient (REF) | payer MEDICARE ==
[2023-11-25 13:35] LABS: BLOOD UREA NITROGEN 28 MG/DL (9-23); CALCIUM LEVEL 9.1 MG/DL (8.3-10.6); CARBON DIOXIDE LEVEL 30 MMOL/L (20-31); CHLORIDE LEVEL 104 MMOL/L (98-107); CREATININE FOR GFR 0.73 MG/DL (0.55-1.30); GLOMERULAR FILTRATION RATE > 60.0 (>45); GLUCOSE, FASTING 67 MG/DL (74-106); POTASSIUM SERUM 4.2 MMOL/L (3.5-5.1); SODIUM LEVEL 140 MMOL/L (136-145)
[2023-11-25 13:37] LABS: BASO % 0.6 % (0.0-1.0); EOS % 0.6 % (0.0-3.0); HEMATOCRIT 45.6 % (36.0-47.0); HEMOGLOBIN 14.7 g/dl (12.0-15.5); LYMPH # 0.9 10^3/uL (1.5-5.0); LYMPH % 26.4 % (24.0-44.0); MEAN CORPUSCULAR HEMOGLOBIN 26.7 pg (27.0-33.0); MEAN CORPUSCULAR HGB CONC 32.2 g/dl (32.0-36.5); MEAN CORPUSCULAR VOLUME 82.8 fl (80.0-96.0); MONO # 0.5 10^3/uL (0.0-0.8); MONO % 16.1 % (2.0-8.0); NEUTROPHILS # 1.8 10^3/uL (1.5-8.5); PLATELET COUNT, AUTOMATED 265 10^3/uL (150-450); RED BLOOD COUNT 5.51 10^6/uL (4.00-5.40); WHITE BLOOD COUNT 3.2 10^3/uL (4.0-10.0)
== END ==
LOC: M SFHCADAM 09:21
PROVIDERS: ATTEND Physician Assistant Medical
DX: R52 Pain, unspecified (principal); R11.2 Nausea with vomiting, unspecified; E86.0 Dehydration

== ENCOUNTER → 2024-02-14 | Outpatient (REF) | payer MEDICARE ==
[2024-02-14 17:40] LABS: HEMOGLOBIN 12.7 g/dl (12.0-15.5); MEAN CORPUSCULAR HEMOGLOBIN 25.8 pg (27.0-33.0); MEAN CORPUSCULAR VOLUME 83.3 fl (80.0-96.0); PLATELET COUNT, AUTOMATED 324 10^3/uL (150-450); RED BLOOD COUNT 4.92 10^6/uL (4.00-5.40); WHITE BLOOD COUNT 6.2 10^3/uL (4.0-10.0)
[2024-02-14 17:44] LABS: ALBUMIN 3.4 G/DL (3.2-5.2); ALKALINE PHOSPHATASE 118 U/L (46-116); ALT/SGPT 20 U/L (7.0-40); AST/SGOT 14 U/L (<34); BILIRUBIN,TOTAL 0.6 MG/DL (0.3-1.2); BLOOD UREA NITROGEN 19 MG/DL (9-23); CALCIUM LEVEL 8.7 MG/DL (8.3-10.6); CARBON DIOXIDE LEVEL 28 MMOL/L (20-31); CHLORIDE LEVEL 111 MMOL/L (98-107); CHOLESTEROL LEVEL 163 MG/DL (<200); CHOLESTEROL RISK RATIO 2.13 (<5); CREATININE FOR GFR 0.58 MG/DL (0.55-1.30); GLOMERULAR FILTRATION RATE > 60.0 (>45); GLUCOSE, FASTING 89 MG/DL (74-106); HDL CHOLESTEROL 76.4 MG/DL (>40); IRON (FE) 72 UG/DL (50-170); LDL CHOLESTEROL 72.8 MG/DL (<100); NON-HDL-C 86.6 MG/DL; PERCENT SATURATION 19.3 % (13.2-45.0); POTASSIUM SERUM 4.1 MMOL/L (3.5-5.1); SODIUM LEVEL 143 MMOL/L (136-145); TOTAL IRON BINDING CAPACITY 373 UG/DL (250-425); TOTAL PROTEIN 6.6 G/DL (5.7-8.2); TRIGLYCERIDES LEVEL 69 MG/DL (<150)
[2024-02-14 17:45] LABS: FERRITIN 4.6 NG/ML (7.3-270.7); FREE T4 0.95 NG/DL (0.89-1.76); THYROID STIMULATING HORMONE 1.475 uIU/ML (0.55-4.78)
[2024-02-14 17:46] LABS: FOLATE 17.9 NG/ML (>5.4); VITAMIN B12 LEVEL 564 PG/ML (211-911)
== END ==
LOC: M SFHCADAM 10:59
PROVIDERS: ATTEND Physician Assistant Medical
DX: D64.9 Anemia, unspecified (principal); E66.8 Other obesity

== ENCOUNTER 2024-03-06 13:45 | Day surgery (SDC) | payer MEDICARE ==
[~2024-03-06] VITALS: Ht 167.6 cm; Wt 81.3 kg
[~2024-03-06 13:45] MED LIST changes: +LR 1,000 ML IV SCH; +PANT40TA29 PO
[2024-03-06] MEDS ORDERED: MECL-86 PO (14:04)
[2024-03-06] MEDS: ATROPINE SULFATE 1% OPHTH SOLN 2ML BTL OS SCH (14:23)
[2024-03-06] MEDS: TETRACAINE 0.5% OPHTH SOLN 4ML OS SCH (14:23)
[2024-03-06] MEDS: FLURBIPROFEN 0.03% OPHTH SOLN 2.5 ML OS SCH (14:23)
[2024-03-06] MEDS: PHENYLEPHRINE 2.5% OPHTH SOL 2ML OS SCH (14:23)
[2024-03-06] MEDS: SCOPOLAMINE 1MG TRANSDERMAL PATCH TOP ONE (14:23)
[2024-03-06] MEDS ORDERED: MIDAZOLAM INJ 2MG/2ML VIAL As Ordered ONE (15:16)
[2024-03-06] MEDS: LIDOCAINE 1% SDV 5ML VIAL As Ordered ONE (15:17)
[2024-03-06] MEDS ORDERED: fentaNYL 100 MCG/2 ML INJECTION As Ordered ONE (15:28)
[2024-03-06] MEDS: CEFUROXIME 1MG/0.1ML INTRACAMERAL INJ As Ordered ONE (15:33)
[2024-03-06 15:46] VITALS: BP 169/75; TEMP 97.1; O2SAT 95
== END 2024-03-06 16:14 | disposition home or self-care (01) ==
LOC: M SDC 13:45
PROVIDERS: ATTEND Ophthalmology
DX: H25.12 Age-related nuclear cataract, left eye (principal); K21.9 Gastro-esophageal reflux disease without esophagitis; Z79.899 Other long term (current) drug therapy; Z85.41 Personal history of malignant neoplasm of cervix uteri; Z90.710 Acquired absence of both cervix and uterus
CPT/HCPCS: 66984; 92015; J0697; J2250; J3010; V2632

== ENCOUNTER → 2024-03-14 | Outpatient (REF) | payer MEDICARE ==
[~2024-03-14] MED LIST changes: -LR 1,000 ML IV SCH; +MECL-86 PO
== END ==
LOC: M SFHCADAM 12:46
PROVIDERS: ATTEND Physician Assistant Medical
DX: R19.5 Other fecal abnormalities (principal); R19.7 Diarrhea, unspecified; R10.13 Epigastric pain

== ENCOUNTER → 2024-05-01 | Outpatient (REF) | payer MEDICARE ==
[2024-05-01 13:30] LABS: BASO % 0.5 % (0.0-1.0); EOS # 0.3 10^3/uL (0.0-0.5); EOS % 5.2 % (0.0-3.0); HEMOGLOBIN 13.3 g/dl (12.0-15.5); LIPASE 30 U/L (12-53); LYMPH # 1.4 10^3/uL (1.5-5.0); LYMPH % 23.5 % (24.0-44.0); MEAN CORPUSCULAR HEMOGLOBIN 25.2 pg (27.0-33.0); MEAN CORPUSCULAR HGB CONC 30.9 g/dl (32.0-36.5); MEAN CORPUSCULAR VOLUME 81.4 fl (80.0-96.0); MONO # 0.6 10^3/uL (0.0-0.8); MONO % 9.6 % (2.0-8.0); NEUTROPHILS # 3.7 10^3/uL (1.5-8.5); NEUTROPHILS % 60.7 % (36.0-66.0); PLATELET COUNT, AUTOMATED 313 10^3/uL (150-450); RED BLOOD COUNT 5.28 10^6/uL (4.00-5.40); WHITE BLOOD COUNT 6.1 10^3/uL (4.0-10.0)
[2024-05-01 13:31] LABS: AMYLASE 62 U/L (30-118)
[2024-05-01 13:32] LABS: ALBUMIN 3.6 G/DL (3.2-5.2); ALKALINE PHOSPHATASE 124 U/L (46-116); ALT/SGPT 17 U/L (7.0-40); AST/SGOT 15 U/L (<34); BILIRUBIN,TOTAL 0.3 MG/DL (0.3-1.2); BLOOD UREA NITROGEN 23 MG/DL (9-23); CALCIUM LEVEL 9.3 MG/DL (8.3-10.6); CARBON DIOXIDE LEVEL 29 MMOL/L (20-31); CHLORIDE LEVEL 108 MMOL/L (98-107); CREATININE FOR GFR 0.72 MG/DL (0.55-1.30); GLOMERULAR FILTRATION RATE > 60.0 (>45); GLUCOSE, FASTING 91 MG/DL (74-106); POTASSIUM SERUM 4.5 MMOL/L (3.5-5.1); SODIUM LEVEL 142 MMOL/L (136-145); TOTAL PROTEIN 7.1 G/DL (5.7-8.2)
[2024-05-06 00:51] LABS: PANCREATIC ELASTASE STOOL 449 mcg/g (>200)
== END ==
LOC: M LABDRWAD 12:43
PROVIDERS: ATTEND Physician Assistant Medical
DX: R19.7 Diarrhea, unspecified (principal); R10.10 Upper abdominal pain, unspecified

== ENCOUNTER → 2024-05-08 | Outpatient (CLI) | payer MEDICARE ==
[~2024-05-08] MED LIST changes: +GASTROGRAFIN SOLUTION 30ML As Ordered ONE; +ISOVUE-370 76% 100ML VIAL As Ordered ONE
== END ==
LOC: M RAD 12:23
PROVIDERS: ATTEND Physician Assistant Medical
DX: R10.10 Upper abdominal pain, unspecified (principal); R19.4 Change in bowel habit; K44.9 Diaphragmatic hernia without obstruction or gangrene; R91.8 Other nonspecific abnormal finding of lung field; K76.0 Fatty (change of) liver, not elsewhere classified; R16.1 Splenomegaly, not elsewhere classified; K57.90 Diverticulosis of intestine, part unspecified, without perforation or abscess without bleeding; M51.44 Schmorl's nodes, thoracic region; M48.54XA Collapsed vertebra, not elsewhere classified, thoracic region, initial encounter for fracture; M47.816 Spondylosis without myelopathy or radiculopathy, lumbar region; K42.9 Umbilical hernia without obstruction or gangrene; K40.90 Unilateral inguinal hernia, without obstruction or gangrene, not specified as recurrent
CPT/HCPCS: 74177; Q9963; Q9967

== ENCOUNTER → 2024-06-05 | Outpatient (CLI) | payer MEDICARE ==
[~2024-06-05] MED LIST changes: +E-Z-GAS II EFFERVESCENT PACKET (SODIUM BICARB./CITRIC ACID/SIMETHICONE) As Ordered ONE; +E-Z-HD 98% w/w 340GM SUSP BTL As Ordered ONE; +E-Z-PAQUE 96% w/w SUSP 176GM BTL As Ordered ONE; -GASTROGRAFIN SOLUTION 30ML As Ordered ONE; -ISOVUE-370 76% 100ML VIAL As Ordered ONE
== END ==
LOC: M RAD 08:32
PROVIDERS: ATTEND Physician Assistant Medical
DX: R10.10 Upper abdominal pain, unspecified (principal); K44.9 Diaphragmatic hernia without obstruction or gangrene

== ENCOUNTER → 2024-11-10 | Outpatient (CLI) | payer MEDICARE ==
[~2024-11-10] MED LIST changes: -E-Z-GAS II EFFERVESCENT PACKET (SODIUM BICARB./CITRIC ACID/SIMETHICONE) As Ordered ONE; -E-Z-HD 98% w/w 340GM SUSP BTL As Ordered ONE; -E-Z-PAQUE 96% w/w SUSP 176GM BTL As Ordered ONE; +SIME80CH6
== END ==
LOC: M RAD 08:12
PROVIDERS: ATTEND Physician Assistant Medical
DX: K76.0 Fatty (change of) liver, not elsewhere classified (principal)

== ENCOUNTER → 2024-12-18 | Outpatient (CLI) | payer MEDICARE ==
[~2024-12-18] MED LIST changes: +GADOXETATE DISODIUM 2.5MMOL/10ML VIAL (EOVIST) ONE
== END ==
LOC: M PLAIMG 09:31
PROVIDERS: ATTEND Physician Assistant Medical
DX: R93.2 Abnormal findings on diagnostic imaging of liver and biliary tract (principal); K76.89 Other specified diseases of liver; N28.1 Cyst of kidney, acquired; K76.0 Fatty (change of) liver, not elsewhere classified; K42.9 Umbilical hernia without obstruction or gangrene; K44.9 Diaphragmatic hernia without obstruction or gangrene
CPT/HCPCS: 74183; A9581

== ENCOUNTER → 2025-06-11 | Outpatient (CLI) | payer MEDICARE ==
[~2025-06-11] MED LIST changes: -GADOXETATE DISODIUM 2.5MMOL/10ML VIAL (EOVIST) ONE; -IBUP-1022 PO; +IBUP600T42 PO
== END ==
LOC: M PLAIMG 08:03
PROVIDERS: ATTEND Physician Assistant Medical
DX: R91.1 Solitary pulmonary nodule (principal); K44.9 Diaphragmatic hernia without obstruction or gangrene; Z12.31 Encounter for screening mammogram for malignant neoplasm of breast

== ENCOUNTER → 2025-06-11 | Outpatient (CLI) | payer MEDICARE | LOC: M WHC 08:04 | PROVIDERS: ATTEND Physician Assistant Medical | DX: Z12.31 Encounter for screening mammogram for malignant neoplasm of breast (principal) ==